=== PATIENT | male | born 1975 | race Caucasian/White ===

== ENCOUNTER 2017-04-04 09:16 | Outpatient (CLI) | payer OTHER ==
--- NOTE | 2017-04-04 11:38 | MRI Report ---
EXAM: RIGHT KNEE MRI WITHOUT CONTRAST EXAM DATE: 04/04/2017 10:10 AM. CLINICAL HISTORY: Chronic right knee pain for 10 years. COMPARISON: 11/12/2006 MRI. TECHNIQUE: Multiplanar, multisequence T1-weighted and fluid-sensitive sequences of the knee without c ontrast. Other: None. FINDINGS: Bones: Mild tricompartmental osteophytes are present. No fractures. Minimal red marrow reconversion i s in the distal femur. There is periarticular reactive marrow in the medial femoral condyle. Articular Cartilage: The patellofemoral and lateral compartment articular cartilage is intact. There is moderate thinning in the medial compartment articular cartilage. Medial Meniscus: A horizontal tear of the posterior horn of the medial meniscus can be seen on series 601, image 6). This is associated with a small parameniscal cyst. It extends into the body and there is some displacement of a fragment into the coronary recess. Lateral Meniscus: The lateral meniscus is intact. Cruciate Ligaments: The anterior and posterior cruciate ligaments are intact. Collateral Ligaments: The medial collateral and lateral collateral ligamentous structures are intact. Tendons: The quadriceps, patellar, semimembranosus, and popliteus tendons are unremarkable. Musculature: No edema or fatty atrophy. Other: No effusion. The patient has a moderate-sized popliteal cyst with evidence of rupture. No loos e bodies. The medial and lateral retinacula are intact. Prepatellar subcutaneous edema is seen. IMPRESSION: 1. Mild osteoarthritis. 2. Tearing of the medial meniscus. 3. Moderate-sized popliteal cyst. [facility] MUSCULOSKELETAL RADIOLOGY SECTION Referring Provider Line: [phone] SITE ID: [id number]
== END 2017-04-04 09:17 | disposition home or self-care (01) ==
LOC: DI 09:16
PROVIDERS: ATTEND Radiology Diagnostic Radiology
DX: M17.11 Unilateral primary osteoarthritis, right knee (principal); S83.241A Other tear of medial meniscus, current injury, right knee, initial encounter; M71.21 Synovial cyst of popliteal space [Baker], right knee